=== PATIENT | male | born 1990 | race Caucasian/White ===

== ENCOUNTER 2017-07-22 11:02 | Emergency (ER) | payer BC, OTHER ==
[~2017-07-22 11:02] MED LIST: MEDR4PAK3 PO; TRAM50 PO
[2017-07-22 11:03] VITALS: BP 133/86; PULSE 88; RESP 16; TEMP 98.2; O2SAT 100
--- NOTE | 2017-07-22 12:06 | RADRPT ---
EXAM DATE/TIME: 07/22/2017 11:23 [place] COMPARISON: No previous studies available for comparison. INDICATIONS : Right hand pain. Impact injury. MEDICAL HISTORY : Lacerated tendon at 5th right finger, limited movement. SURGICAL HISTORY : None. ENCOUNTER: Initial ACUITY: 1 day PAIN SCORE: 6/10 LOCATION: Right hand, 3rd-5th MCPJs FINDINGS: Three views of the right hand demonstrate no fracture or dislocation. Mineralization is within normal limits and there is no significant arthropathy. No radiopaque foreign body is identified. There is s oft tissue swelling on the dorsal aspect of the hand. CONCLUSION: Soft tissue swelling. No fracture or radiopaque foreign body is identified. Gabriel Rose MD on July 22, 2017 at 11:53 Board Certified Radiologist. This report was verified electronically.
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
== END 2017-07-22 13:19 | disposition home or self-care (01) ==
LOC: NEPD 11:02
DX: S60.221A Contusion of right hand, initial encounter (principal); V89.2XXA Person injured in unspecified motor-vehicle accident, traffic, initial encounter
CPT/HCPCS: 73130; 99283